=== PATIENT | female | born 1995 | race Caucasian/White ===

== ENCOUNTER 2016-09-07 19:49 | Emergency (ER) | payer MEDICAID ==
[~2016-09-07] VITALS: Ht 172.7 cm; Wt 80.3 kg
[~2016-09-07 19:49] MED LIST: ACYC400T PO; AMOX875T2 PO; IBUP200C PO; MAALIDOBEN BU; NAPR250T34 PO; NITR100C3 PO; OXYC1TAB87 PO; PREN1COM PO
--- NOTE | 2016-09-07 20:42 | Diagnostic Imaging Report ---
Clinical indication: Patient with pain in medial ankle. No known injury. Exam: X-ray of the right ankle, AP and lateral views. Comparison: None. Findings: There is no acute fracture or dislocation. There is no significant bone or joint abnormality. The visualized portions of the ankle mortise and syndesmotic joint is unremarkable. IMPRESSION: Unremarkable x-ray of the right ankle, as visualized. Dictated by: Dictated on workstation # [id number]
[2016-09-07 21:01] VITALS: BP 112/67
== END 2016-09-07 21:04 | disposition home or self-care (01) ==
LOC: ED 19:50
DX: O26.893 Other specified pregnancy related conditions, third trimester (principal); M25.571 Pain in right ankle and joints of right foot; O99.333 Smoking (tobacco) complicating pregnancy, third trimester; F17.210 Nicotine dependence, cigarettes, uncomplicated; Z3A.35 35 weeks gestation of pregnancy
CPT/HCPCS: 73600; 99283; L4350; 99282